=== PATIENT | male | born 1995 ===

== ENCOUNTER 2020-05-28 19:20 | Emergency (ER) | payer OTHER ==
--- NOTE | 2020-05-28 21:10 | TELE ---
HPI Do you have fever,cough or shortness of breath?: No - General Reason For Visit: COVID testing, antibody testing History Source: Patient Exam Limitations: No Limitations - History of Present Illness 05/28/20 21:07 Patient is a 25-year-old male who participated in a virtual urgent care visit for request of routine COVID testing and COVID antibodies. The patient states there was a cluster of patients recently in his neighborhood and he would like to get tested. The patient denies any symptoms at all. He denies any recent travel outside of the within the last 30 days or outside of [facility] within the last 14. He has a history of hypothyroidism. Please note: That this virtual urgent care visit was done via audio only as the patient was having technical difficulties accessing the video portion of the visit. Review of Systems - Review of Systems Comments:: 05/28/20 21:08 - Review of Systems Able to Perform ROS?: Yes Constitutional: No: Fever, Chills, Loss of Appetite, Night Sweats, Weakness; positive: Routine COVID and antibody test HEENTM: No: Eye Pain, Vision changes, Ear Pain, Throat Pain, Throat Swelling, Mouth Pain, Difficulty Swallowing Respiratory: No: Cough, Shortness of Breath, Wheezing, Sputum Production Cardiac (ROS): No: Chest Pain, Chest Tightness, Palpitations, Irregular Heart Beat, Edema ABD/GI: No: Nausea, Vomiting, Abdominal Pain, Diarrhea Musculoskeletal: No: Muscle Pain, Back Pain, Joint Pain, Muscle Weakness, Neck Pain Integumentary: No: Lesions, Rash Neurological: No: Headache, Numbness, Tingling, Weakness, Speech Difficulties *Physical Exam - Physical Exam 05/28/20 21:08 - Physical Exam HEENT: Normal Voice, Hearing Grossly Normal Respiratory/Chest: Speaking in full and complete sentences Neurologic: Fully Oriented, Alert, Normal Mood/Affect, Normal Response - Medical Decision Making 05/28/20 21:09 Assessment: Patient is a 25-year-old male who participated in a virtual urgent care visit for routine COVID and antibody testing. Plan: -COVID swab ordered, antibiotic testing ordered -Patient to proceed to our [facility] for testing -COVID counseling given, isolation precautions reviewed -Patient understands and agrees this treatment plan Discharge Diagnosis at time of Disposition: Counseled about COVID-19 virus infection - Referrals - Patient Instructions Discharge Instructions: [facility] Instructions, [facility] COVID-19 Isolation Protocol Additional Discharge Instructions: You were seen via a telehealth visit and tested for COVID today. You should follow isolation precautions as per [place] guidelines. Thank you for participating in our telehealth medicine program. If you have any worsening symptoms such as high fever, shaking chills, profuse vomiting or any other worsening symptoms you should go to your local emergency department immediately or follow up with your primary care doctor immediately. If you become symptomatic: Take Tylenol 650 mg every 6 hours as needed for fever or pain. You may take Robitussin or other [id number] cough syrup. Follow the dosing instructions on the bottle. Warm tea, honey, and salt water gargles may help your symptoms. Please take precautions and self quarantine for 2 weeks and follow-up with your primary care doctor and the Department of Health. Return to the nearest emergency department for shortness of breath, difficulty breathing, chest pain, or if you have any changes in your symptoms. - Discharge Disposition: HOME Condition at time of Disposition: Stable
== END 2020-05-28 21:10 | disposition home or self-care (01) ==
LOC: JVIRT 19:20 → EDSTATUS 19:23 → JVIRT 21:10
DX: Z03.818 Encounter for observation for suspected exposure to other biological agents ruled out (principal); Z01.84 Encounter for antibody response examination
CPT/HCPCS: 36415; 86769; 99441-95; C9803; U0003